=== PATIENT | female | born 1945 | race Caucasian/White ===

== ENCOUNTER → 2019-08-20 | Outpatient (CLI) | payer MEDICARE, OTHER ==
[~2019-08-20] MED LIST: AMIO200T33 PO; AMLO10TA13 PO; ASPI-543 PO; ATO40T PO; CHOL400C12 PO; CLOP75TA41 PO; LEVO125T7 PO; LISI40TA11 PO; METO25TA93 PO; PANT40TA2 PO; SUCR1TAB22 PO
[2019-08-20 12:11] LABS: Urine Blood Negative /uL (Negative); Urine Specific Gravity 1.008 (1.001-1.035)
[2019-08-20 12:12] LABS: Basophils # (auto) 0 10 ^3/uL (0-0.2); Basophils % (auto) 0.5 % (0.0-2.0); Eosinophils # (auto) 0.1 10 ^3/uL (0-0.8); Eosinophils % (auto) 1.7 % (0.0-7.0); Hematocrit 44.4 % (36.0-46.0); Hemoglobin 15.2 g/dL (12.2-16.2); Lymphocytes # (auto) 2.9 10 ^3/uL (0.4-5.4); Lymphocytes % (auto) 42.9 % (10.0-50.0); Mean Corpuscular Hemoglobin 29.5 pg (28.0-32.0); Mean Corpuscular Hgb Conc. 34.2 g/dL (32.0-36.0); Mean Corpuscular Volume 86.3 fL (80.0-100.0); Monocytes # (auto) 0.5 10 ^3/uL (0-1.3); Monocytes % (auto) 7.9 % (0.0-12.0); Neutrophils # (auto) 3.1 10 ^3/uL (1.6-8.6); Nucleated Red Blood Cells % 0.1 %; Platelet Count (auto) 289 10^3/uL (140-450); Red Blood Cells 5.14 10^6/uL (4.0-5.20); White Blood Cell 6.6 10^3/uL (4.4-10.8)
[2019-08-20 12:25] LABS: Calcium 9.5 mg/dL (8.5-10.1); Potassium 3.9 mmol/L (3.5-5.1)
[2019-08-20 12:30] LABS: BUN/Creatinine Ratio 10.3; Bilirubin, Total 0.5 mg/dL (0.2-1.0); Total Protein 8.4 g/dL (6.4-8.2)
[2019-08-20 12:36] LABS: Free T4 (Free Thyroxine) 1.71 ng/dL (0.89-1.76)
== END | disposition home or self-care (01) ==
LOC: LAB 09:29
PROVIDERS: ATTEND Internal Medicine
DX: E03.9 Hypothyroidism, unspecified (principal); K90.9 Intestinal malabsorption, unspecified; N39.0 Urinary tract infection, site not specified; D51.9 Vitamin B12 deficiency anemia, unspecified; Z00.00 Encounter for general adult medical examination without abnormal findings; Z79.899 Other long term (current) drug therapy
CPT/HCPCS: 36415; 80053; 80061; 81003; 82306; 82607; 83036; 84439; 84443; 85025; 87086

== ENCOUNTER → 2019-09-02 | Outpatient (CLI) | payer MEDICARE, OTHER ==
[~2019-09-02] MED LIST changes: -AMIO200T33 PO; -ASPI-543 PO; -CLOP75TA41 PO; +LISI40TA PO; -LISI40TA11 PO; -METO25TA93 PO; -PANT40TA2 PO; -SUCR1TAB22 PO
== END | disposition home or self-care (01) ==
LOC: Rad HDHVI 12:54
PROVIDERS: ATTEND Internal Medicine
DX: I35.8 Other nonrheumatic aortic valve disorders (principal); I25.10 Atherosclerotic heart disease of native coronary artery without angina pectoris; I42.9 Cardiomyopathy, unspecified; E78.5 Hyperlipidemia, unspecified
CPT/HCPCS: 93306

== ENCOUNTER → 2019-11-12 | Emergency (ER) | payer MEDICARE, OTHER ==
[~2019-11-12] VITALS: Ht 172.7 cm; Wt 77.1 kg
[2019-11-12 18:21] VITALS: BP 125/65
[2019-11-12 20:08] LABS: Basophils # (auto) 0 10 ^3/uL (0-0.2); Basophils % (auto) 0.5 % (0.0-2.0); Eosinophils # (auto) 0.2 10 ^3/uL (0-0.8); Eosinophils % (auto) 1.9 % (0.0-7.0); Hematocrit 42.2 % (36.0-46.0); Hemoglobin 14.5 g/dL (12.2-16.2); Lymphocytes % (auto) 43.1 % (10.0-50.0); Mean Corpuscular Hemoglobin 29.5 pg (28.0-32.0); Mean Corpuscular Hgb Conc. 34.4 g/dL (32.0-36.0); Mean Corpuscular Volume 85.9 fL (80.0-100.0); Monocytes # (auto) 0.9 10 ^3/uL (0-1.3); Monocytes % (auto) 9.6 % (0.0-12.0); Neutrophils # (auto) 4.2 10 ^3/uL (1.6-8.6); Neutrophils % (auto) 44.9 % (37.0-80.0); Platelet Count (auto) 337 10^3/uL (140-450); Red Blood Cells 4.91 10^6/uL (4.0-5.20); Red Cell Distribution Width 14.3 % (11.8-14.3); White Blood Cell 9.3 10^3/uL (4.4-10.8)
[2019-11-12 20:21] LABS: INR 1.01 (0.9-1.15); Partial Thromboplastin Time 25.1 sec (23.64-32.05)
[2019-11-12 21:05] LABS: Albumin 4.2 g/dL (3.4-5.0); Calcium 9.5 mg/dL (8.5-10.1); Magnesium 2.3 mg/dL (1.6-2.6); Potassium 3.7 mmol/L (3.5-5.1)
[2019-11-12 21:10] LABS: BUN/Creatinine Ratio 14.3; Bilirubin, Total 0.4 mg/dL (0.2-1.0); Total Protein 8.3 g/dL (6.4-8.2)
== END | disposition home or self-care (01) ==
LOC: ER 18:00
DX: I21.4 Non-ST elevation (NSTEMI) myocardial infarction (principal); I25.9 Chronic ischemic heart disease, unspecified; I47.2 Ventricular tachycardia; R00.2 Palpitations; J44.9 Chronic obstructive pulmonary disease, unspecified; E78.5 Hyperlipidemia, unspecified; I10 Essential (primary) hypertension; E03.9 Hypothyroidism, unspecified
CPT/HCPCS: 36415; 71045; 80053; 83735; 83880; 84443; 84484; 85025; 85379; 85610; 85730; 93005

== ENCOUNTER → 2019-11-18 | Outpatient (CLI) | payer MEDICARE, OTHER ==
[~2019-11-18] MED LIST changes: +AMIO200T33 PO; +ASPI-404 PO; +CLOP75TA41 PO; +METO25TA93 PO
[2019-11-18 12:05] VITALS: BP 127/82
--- NOTE | 2019-11-18 12:05 | NUR ---
PATIENT IN CLINIC FOR ADD ON PREOP, AAOX4, AMBULATORY, BREATHING EVEN AND UNLABORED.
[2019-11-18 12:34] VITALS: BP 107/63
--- NOTE | 2019-11-18 12:34 | NUR ---
Pre-Op Discharge Summary: See e-MAR for any medications given for this visit. Pre-op orders received and carried out per MD of EKG, LABS and chest xrays. Patient given a copy of EKG with instructions to go to [facility] out patient for further follow up care.
[2019-11-18 16:02] LABS: Basophils # (auto) 0 10 ^3/uL (0-0.2); Basophils % (auto) 0.6 % (0.0-2.0); Eosinophils # (auto) 0.1 10 ^3/uL (0-0.8); Eosinophils % (auto) 1.7 % (0.0-7.0); Hematocrit 41.2 % (36.0-46.0); Hemoglobin 14.2 g/dL (12.2-16.2); Lymphocytes % (auto) 45.2 % (10.0-50.0); Mean Corpuscular Hemoglobin 29.5 pg (28.0-32.0); Mean Corpuscular Hgb Conc. 34.4 g/dL (32.0-36.0); Mean Corpuscular Volume 85.8 fL (80.0-100.0); Monocytes # (auto) 0.6 10 ^3/uL (0-1.3); Neutrophils # (auto) 2.9 10 ^3/uL (1.6-8.6); Neutrophils % (auto) 43.5 % (37.0-80.0); Platelet Count (auto) 336 10^3/uL (140-450); Red Cell Distribution Width 14.5 % (11.8-14.3); White Blood Cell 6.6 10^3/uL (4.4-10.8)
[2019-11-18 16:15] LABS: BUN/Creatinine Ratio 12.2; Calcium 8.7 mg/dL (8.5-10.1); Potassium 3.8 mmol/L (3.5-5.1)
[2019-11-18 16:21] LABS: INR 1.01 (0.9-1.15); Partial Thromboplastin Time 26.2 sec (23.64-32.05)
== END | disposition home or self-care (01) ==
LOC: Rad HDHVI 11:59
PROVIDERS: ATTEND Internal Medicine
DX: J98.4 Other disorders of lung (principal); I70.0 Atherosclerosis of aorta; R05 Cough; M47.894 Other spondylosis, thoracic region; M25.78 Osteophyte, vertebrae; Z01.812 Encounter for preprocedural laboratory examination
CPT/HCPCS: 36415; 71046; 80048; 85025; 85610; 85730; 93005; G0463

== ENCOUNTER 2019-11-25 07:36 | Inpatient (IN) | payer MEDICARE, OTHER ==
[~2019-11-25] VITALS: Ht 172.7 cm; Wt 77.8 kg
[~2019-11-25 07:36] MED LIST changes: -ASPI-404 PO; +ASPI-543 PO; -LISI40TA PO; +LISI40TA11 PO
[2019-11-25] MEDS ORDERED: IOHEXOL 350 MG/ML 100ML IJ ONE ×2 (08:59→09:59)
[2019-11-25] MEDS ORDERED: LIDOCAINE 2%HCL (LOCAL ANESTH.) INJ 20ML MDV ONE (08:59)
[2019-11-25] MEDS ORDERED: fentaNYL CITRATE 100 MCG/2 ML VL ONE (09:58)
[2019-11-25] MEDS ORDERED: HEPARIN SODIUM (PORCINE) 5000 UNITS/ML 1ML VIAL ONE (09:58)
[2019-11-25] MEDS ORDERED: ANGIOMAX 250 MG VIAL IV ONE (09:58)
[2019-11-25] MEDS ORDERED: VERAPAMIL 2.5MG/ML INJ 2ML VIAL IV ONE (09:58)
[2019-11-25] MEDS ORDERED: MIDAZOLAM HCL 1MG/1ML-2 ML VIAL ONE (09:58)
[2019-11-25] MEDS ORDERED: SODIUM CHL 0.9% 50 ML ONE (09:59)
[2019-11-25] MEDS ORDERED: CLOPIDOGREL BISULFATE 75 MG TAB ONE (11:16)
[2019-11-25] MEDS ORDERED: ASPirin 81 mg TAB ONE (11:16)
[2019-11-25] MEDS ORDERED: HYDROcodone-ACET 5/325MG TAB PO PRN (12:00)
[2019-11-25] MEDS ORDERED: ONDANSETRON HCL 4 MG/2 ML VIAL IV PRN (12:00)
[2019-11-25] MEDS ORDERED: ACETAMINOPHEN 500 MG TAB PO PRN (12:00)
[2019-11-25] MEDS ORDERED: NITROGLYCERIN 0.4 MG SL TAB SL PRN (12:00)
[2019-11-25] MEDS ORDERED: MORPHINE SULF INJ 2 MG/ML SYRINGE 1ML IV PRN (12:00)
[2019-11-25] MEDS ORDERED: AMIODARONE HCL 200 MG TAB PO ONE ×2 (12:15→12:30)
[2019-11-25] MEDS ORDERED: LISINOPRIL 20 MG TAB PO ONE (12:30)
[2019-11-25] MEDS ORDERED: ASPirin-EC 81 mg tab PO ONE (12:30)
[2019-11-25] MEDS ORDERED: amLODIPine BESYLATE 5 MG TAB PO ONE (12:30)
[2019-11-25] MEDS ORDERED: LEVOTHYROXINE SODIUM 50 MCG TAB PO ONE (12:30)
[2019-11-25] MEDS ORDERED: METOPROLOL SUCCINATE XL 50 MG TAB PO ONE (12:30)
[2019-11-25] MEDS ORDERED: CLOPIDOGREL BISULFATE 75 MG TAB PO ONE (12:30)
--- NOTE | 2019-11-25 13:10 | NUR ---
Telemetry admit from National Account Director WILLIE PEDERSEN admitted to Telemetry unit after SBAR received. Patient oriented to ABDIRAHMAN MATHEWS RN primary RN, unit, room, bed, and unit policies regarding patient care. Patient now on continuous telemetry monitoring, tele box # 61 and telemetry reading on arrival to unit is sinus 71. Patient is on room air, respirations even and unlabored. Patient has vasc band to left wrist. Patient denies pain at this time. Reviewed plan of care with patient, patient verbalized understanding. Bed in low and locked position, call light within reach. Will continue to monitor Q1 hour and PRN.
--- NOTE | 2019-11-25 15:00 | NUR ---
Vasc band removed No signs of bleeding or hematoma noted to left wrist, gauze and Tegaderm applied. Patient tolerated well. Will continue to monitor Q1 hour and PRN.
[2019-11-25 16:50] VITALS: BP 105/64
--- NOTE | 2019-11-25 17:11 | NUR ---
IV removed IV removed with clean sterile technique from left hand, catheter fully intact. Pressure dressing applied to site. Patient tolerated well. Will continue to monitor Q1 hour and PRN.
--- NOTE | 2019-11-25 19:03 | NUR ---
Closing Note Report given to bricklayer supervisor RN. No signs or symptoms of distress noted at this time.
--- NOTE | 2019-11-25 19:30 | NUR ---
Opening Shift Note Assumed care of patient, awake and alert. No S/S of distress/SOB or pain. L wrist incision intact. Instructed on POC and to call for assist PRN, will continue to monitor for changes Q1hr and PRN.
[2019-11-25 22:00] VITALS: BP 137/83
[2019-11-25] MEDS ORDERED: ATORVASTATIN 20 MG TAB PO SCH (22:00)
[2019-11-26 05:29] VITALS: BP 138/78
[2019-11-26] MEDS ORDERED: AMIODARONE HCL 200 MG TAB PO SCH (07:00)
[2019-11-26] MEDS ORDERED: ASPirin-EC 81 mg tab PO SCH (07:00)
--- NOTE | 2019-11-26 07:15 | NUR ---
CLOSING NOTE PATIENT STATUS HAS NOT CHANGE, INCISION SITE CLEAN, DRY AND INTACT. ENDORSED CARE TO DAYSHIFT NURSE.
--- NOTE | 2019-11-26 07:30 | NUR ---
Opening Note Received report from shift leader RN. Patient is resting in bed, easy to wake by calling name. Patient is on room air, respirations even and unlabored. Dressing to left wrist is clean, dry and intact. No bleeding or hematoma noted at this time. Patient denies pain at this time. Reviewed plan of care with patient, patient verbalized understanding. Bed in low and locked position, call light within reach. Will continue to monitor Q1 hour and PRN.
[2019-11-26 08:40] VITALS: BP 133/66
[2019-11-26 09:25] LABS: Basophils # (auto) 0 10 ^3/uL (0-0.2); Basophils % (auto) 0.5 % (0.0-2.0); Eosinophils # (auto) 0.1 10 ^3/uL (0-0.8); Eosinophils % (auto) 1.7 % (0.0-7.0); Hematocrit 43.1 % (36.0-46.0); Hemoglobin 14.7 g/dL (12.2-16.2); Lymphocytes # (auto) 2.2 10 ^3/uL (0.4-5.4); Lymphocytes % (auto) 33.1 % (10.0-50.0); Mean Corpuscular Hemoglobin 29.4 pg (28.0-32.0); Mean Corpuscular Hgb Conc. 34.2 g/dL (32.0-36.0); Mean Corpuscular Volume 85.8 fL (80.0-100.0); Monocytes # (auto) 0.5 10 ^3/uL (0-1.3); Monocytes % (auto) 7.3 % (0.0-12.0); Neutrophils # (auto) 3.8 10 ^3/uL (1.6-8.6); Neutrophils % (auto) 57.4 % (37.0-80.0); Platelet Count (auto) 297 10^3/uL (140-450); Red Blood Cells 5.02 10^6/uL (4.0-5.20); Red Cell Distribution Width 14.7 % (11.8-14.3); White Blood Cell 6.7 10^3/uL (4.4-10.8)
--- NOTE | 2019-11-26 09:58 | NUR ---
0930 11/26/19 - Faxed to Patric Morrison at [phone] following: patient face sheet, order for zoll vest, results of Left Heart Cath.
[2019-11-26] MEDS ORDERED: LEVOTHYROXINE SODIUM 50 MCG TAB PO SCH ×2 (10:00)
[2019-11-26] MEDS ORDERED: CLOPIDOGREL BISULFATE 75 MG TAB PO SCH (10:00)
[2019-11-26] MEDS ORDERED: METOPROLOL SUCCINATE XL 50 MG TAB PO SCH (10:00)
[2019-11-26] MEDS ORDERED: amLODIPine BESYLATE 5 MG TAB PO SCH (10:00)
[2019-11-26] MEDS ORDERED: LISINOPRIL 20 MG TAB PO SCH (10:00)
[2019-11-26 10:01] LABS: Albumin 3.7 g/dL (3.4-5.0); Calcium 9.3 mg/dL (8.5-10.1); Potassium 3.7 mmol/L (3.5-5.1)
[2019-11-26 10:05] LABS: BUN/Creatinine Ratio 9.6; Bilirubin, Total 0.6 mg/dL (0.2-1.0); Total Protein 7.7 g/dL (6.4-8.2)
--- NOTE | 2019-11-26 10:23 | NUR ---
PAUL Guaman at bedside Discussing plan of care with patient and this RN. Patient to discharge home with a zoll life vest. Patient verbalized understanding. Will continue to monitor Q1 hour and PRN.
--- NOTE | 2019-11-26 12:10 | NUR ---
Dr. Dumont at bedside Discussing plan of care with patient and this RN. Patient can discharge home once zoll vest has been delivered. Patient verbalized understanding. Will continue to monitor Q1 hour and PRN.
[2019-11-26 13:00] VITALS: BP 133/76
[2019-11-26 16:33] VITALS: BP 105/63
[2019-11-26 16:51] VITALS: BP 133/66
--- NOTE | 2019-11-26 17:06 | NUR ---
zoll life vest cash application representative at bedside.
--- NOTE | 2019-11-26 17:50 | NUR ---
Discharge Discharge instructions given as ordered. Encourage to follow up with PMD as instructed. All questions and concerns addressed. Patient verbalized understanding. Medication reconciliation form completed and copy given to patient. Chad fischer to patient, patient instructed to have them filled. IV catheter removed, pressure dressing applied. Patient discharged with zoll life vest. Patient verbalized understanding. Patient taken to private vehicle via wheelchair with all personal belongings. No signs or symptoms of distress noted at this time.
== END 2019-11-26 17:55 | disposition home or self-care (01) | DRG 247 ==
LOC: CATH 07:36 → TELE-WESTW 14:02
PROVIDERS: ADMIT Internal Medicine; ATTEND Internal Medicine
PROC: 4A023N7 Measurement of Cardiac Sampling and Pressure, Left Heart, Percutaneous Approach (ICD-10-PCS; principal; 2019-11-25)
PROC: 027035Z Dilation of Coronary Artery, One Artery with Two Drug-eluting Intraluminal Devices, Percutaneous Approach (ICD-10-PCS; 2019-11-25)
PROC: B211YZZ Fluoroscopy of Multiple Coronary Arteries using Other Contrast (ICD-10-PCS; 2019-11-25)
PROC: B215YZZ Fluoroscopy of Left Heart using Other Contrast (ICD-10-PCS; 2019-11-25)
DX: I25.10 Atherosclerotic heart disease of native coronary artery without angina pectoris (principal); I50.22 Chronic systolic (congestive) heart failure; E03.9 Hypothyroidism, unspecified; E78.5 Hyperlipidemia, unspecified; I25.5 Ischemic cardiomyopathy; J44.9 Chronic obstructive pulmonary disease, unspecified; Z20.828 Contact with and (suspected) exposure to other viral communicable diseases; I11.0 Hypertensive heart disease with heart failure
CPT/HCPCS: 36415; 71045; 80053; 83880; 85025; 87081; 92928; 92929; 93458; 99152; 99153; C1874; C1887; G0378; J2250

== ENCOUNTER → 2019-12-24 | Outpatient (CLI) | payer MEDICARE, OTHER | END | disposition home or self-care (01) | LOC: Rad HDHVI 10:00 | PROVIDERS: ATTEND Internal Medicine | DX: I70.0 Atherosclerosis of aorta (principal); I25.10 Atherosclerotic heart disease of native coronary artery without angina pectoris; I42.9 Cardiomyopathy, unspecified; I47.2 Ventricular tachycardia; I51.7 Cardiomegaly | CPT/HCPCS: 93306 ==

== ENCOUNTER 2020-02-24 01:15 | Inpatient (IN) | payer MEDICARE, OTHER ==
[~2020-02-24] VITALS: Ht 172.7 cm; Wt 83.0 kg
[2020-02-24] MEDS ORDERED: PANTOPRAZOLE 40 MG/10 ML VIAL INJ IV ONE (02:15)
[2020-02-24 02:36] LABS: Basophils # (auto) 0.1 10 ^3/uL (0-0.2); Eosinophils # (auto) 0.2 10 ^3/uL (0-0.8); Eosinophils % (auto) 2.3 % (0.0-7.0); Hematocrit 39.5 % (36.0-46.0); Hemoglobin 13.7 g/dL (12.2-16.2); Lymphocytes # (auto) 3.7 10 ^3/uL (0.4-5.4); Lymphocytes % (auto) 42.6 % (10.0-50.0); Mean Corpuscular Hemoglobin 29.9 pg (28.0-32.0); Mean Corpuscular Hgb Conc. 34.5 g/dL (32.0-36.0); Mean Corpuscular Volume 86.5 fL (80.0-100.0); Monocytes # (auto) 0.9 10 ^3/uL (0-1.3); Monocytes % (auto) 10.6 % (0.0-12.0); Neutrophils # (auto) 3.8 10 ^3/uL (1.6-8.6); Neutrophils % (auto) 43.5 % (37.0-80.0); Nucleated Red Blood Cells % 0.2 %; Platelet Count (auto) 380 10^3/uL (140-450); Red Blood Cells 4.57 10^6/uL (4.0-5.20); Red Cell Distribution Width 15.1 % (11.8-14.3); White Blood Cell 8.7 10^3/uL (4.4-10.8)
[2020-02-24 02:50] LABS: INR 0.97 (0.9-1.15); Partial Thromboplastin Time 23.3 sec (23.0-31.2)
[2020-02-24 02:58] LABS: Calcium 9.1 mg/dL (8.5-10.1); Potassium 3.8 mmol/L (3.5-5.1)
[2020-02-24 03:03] LABS: BUN/Creatinine Ratio 15.2; Bilirubin, Total 0.3 mg/dL (0.2-1.0); Total Protein 7.6 g/dL (6.4-8.2)
[2020-02-24] MEDS ORDERED: MORPHINE SULF INJ 2 MG/ML SYRINGE 1ML IV PRN (05:45)
[2020-02-24] MEDS ORDERED: NITROGLYCERIN 0.4 MG SL TAB SL PRN (05:45)
[2020-02-24] MEDS ORDERED: SODIUM CHLORIDE 0.9% 1,000 ML IV SCH (05:45)
[2020-02-24] MEDS ORDERED: ONDANSETRON HCL 4 MG/2 ML VIAL IV PRN (05:45)
[2020-02-24] MEDS ORDERED: IOHEXOL 300 MG/ML 100ML BOTTLE IJ ONE (09:38)
[2020-02-24] MEDS ORDERED: SODIUM CHLORIDE LOCK 10 ML ONE (10:11)
[2020-02-24] MEDS ORDERED: fentaNYL CITRATE 100 MCG/2 ML VL ONE (10:12)
[2020-02-24] MEDS ORDERED: LIDOCAINE VISCOUS 2% 15ML UD ONE (10:12)
[2020-02-24] MEDS ORDERED: MIDAZOLAM HCL 5 MG/ML-1ML VIAL ONE (10:12)
[2020-02-24] MEDS ORDERED: diphenhdrAMINE HCL 50 MG/1 ML VL ONE (10:12)
[2020-02-24] MEDS: PANTOPRAZOLE 40 MG/10 ML VIAL INJ IV SCH ×2 (11:08→22:29)
[2020-02-24 13:00] VITALS: BP 126/77
[2020-02-24] MEDS ORDERED: POTASSIUM EFFERVESENT TAB 25 MEQ PO ONE (13:00)
[2020-02-24 14:19] LABS: Basophils # (auto) 0.1 10 ^3/uL (0-0.2); Eosinophils # (auto) 0.2 10 ^3/uL (0-0.8); Eosinophils % (auto) 1.8 % (0.0-7.0); Hematocrit 32.9 % (36.0-46.0); Hemoglobin 10.9 g/dL (12.2-16.2); Lymphocytes # (auto) 4.3 10 ^3/uL (0.4-5.4); Lymphocytes % (auto) 41.1 % (10.0-50.0); Mean Corpuscular Hemoglobin 29.2 pg (28.0-32.0); Mean Corpuscular Hgb Conc. 33.1 g/dL (32.0-36.0); Mean Corpuscular Volume 88.1 fL (80.0-100.0); Monocytes % (auto) 9.4 % (0.0-12.0); Neutrophils # (auto) 4.9 10 ^3/uL (1.6-8.6); Neutrophils % (auto) 46.7 % (37.0-80.0); Nucleated Red Blood Cells % 0.2 %; Platelet Count (auto) 290 10^3/uL (140-450); Red Blood Cells 3.73 10^6/uL (4.0-5.20); Red Cell Distribution Width 15.4 % (11.8-14.3); White Blood Cell 10.6 10^3/uL (4.4-10.8)
[2020-02-24] MEDS ORDERED: CLOPIDOGREL BISULFATE 75 MG TAB PO ONE (14:45)
[2020-02-24 17:00] VITALS: BP_SYST 120; BP_SYST 189; BP_DIAS 57; BP_DIAS 98
[2020-02-24 17:42] VITALS: BP 120/57
[2020-02-24] MEDS: SUCRALFATE 1 GM/10 ML ORAL SUSP PO SCH ×2 (17:54→22:28)
[2020-02-24 22:00] VITALS: BP 147/86
[2020-02-24] MEDS: ATORVASTATIN 20 MG TAB PO SCH (22:29)
[2020-02-25 05:54] LABS: Basophils # (auto) 0.1 10 ^3/uL (0-0.2); Eosinophils # (auto) 0.2 10 ^3/uL (0-0.8); Eosinophils % (auto) 2.9 % (0.0-7.0); Hematocrit 29.1 % (36.0-46.0); Hemoglobin 9.9 g/dL (12.2-16.2); Lymphocytes # (auto) 2.1 10 ^3/uL (0.4-5.4); Lymphocytes % (auto) 34.9 % (10.0-50.0); Mean Corpuscular Hemoglobin 29.8 pg (28.0-32.0); Mean Corpuscular Hgb Conc. 34.1 g/dL (32.0-36.0); Mean Corpuscular Volume 87.4 fL (80.0-100.0); Monocytes # (auto) 0.6 10 ^3/uL (0-1.3); Monocytes % (auto) 9.6 % (0.0-12.0); Neutrophils # (auto) 3.1 10 ^3/uL (1.6-8.6); Neutrophils % (auto) 51.6 % (37.0-80.0); Nucleated Red Blood Cells % 0.1 %; Platelet Count (auto) 261 10^3/uL (140-450); Red Blood Cells 3.32 10^6/uL (4.0-5.20); Red Cell Distribution Width 14.6 % (11.8-14.3)
[2020-02-25 06:00] VITALS: BP 152/73
[2020-02-25 06:08] LABS: BUN/Creatinine Ratio 11.7; Calcium 8.3 mg/dL (8.5-10.1)
[2020-02-25] MEDS: SUCRALFATE 1 GM/10 ML ORAL SUSP PO SCH ×4 (06:32→22:09)
[2020-02-25] MEDS: LEVOTHYROXINE SODIUM 50 MCG TAB PO SCH (06:32)
[2020-02-25 08:00] VITALS: BP 133/71
[2020-02-25] MEDS ORDERED: CLOPIDOGREL BISULFATE 75 MG TAB PO SCH (10:00)
[2020-02-25] MEDS: PANTOPRAZOLE 40 MG/10 ML VIAL INJ IV SCH ×2 (11:09→22:09)
[2020-02-25] MEDS ORDERED: hydrALAZINE HCL 25 MG TAB PO PRN (13:45)
[2020-02-25] MEDS: SOD CHL 0.9%/ KCL 20MEQ 1,000 ML IV SCH (18:20)
[2020-02-25] MEDS: ATORVASTATIN 20 MG TAB PO SCH (22:10)
[2020-02-25 22:24] VITALS: BP 137/63
[2020-02-26 04:19] LABS: Urine Bacteria NONE SEEN /hpf (None Seen); Urine Blood TRACE /uL (Negative); Urine WBC <1 /hpf (0 - 5)
[2020-02-26 05:09] VITALS: BP 130/66
[2020-02-26] MEDS: SOD CHL 0.9%/ KCL 20MEQ 1,000 ML IV SCH ×4 (05:39→21:50)
[2020-02-26 06:14] LABS: Basophils # (auto) 0 10 ^3/uL (0-0.2); Basophils % (auto) 0.9 % (0.0-2.0); Eosinophils # (auto) 0.1 10 ^3/uL (0-0.8); Eosinophils % (auto) 1.9 % (0.0-7.0); Hematocrit 27.2 % (36.0-46.0); Hemoglobin 9.4 g/dL (12.2-16.2); Lymphocytes # (auto) 1.7 10 ^3/uL (0.4-5.4); Lymphocytes % (auto) 33.5 % (10.0-50.0); Mean Corpuscular Hemoglobin 29.9 pg (28.0-32.0); Mean Corpuscular Hgb Conc. 34.4 g/dL (32.0-36.0); Monocytes # (auto) 0.4 10 ^3/uL (0-1.3); Neutrophils # (auto) 2.7 10 ^3/uL (1.6-8.6); Neutrophils % (auto) 54.7 % (37.0-80.0); Nucleated Red Blood Cells % 0.1 %; Platelet Count (auto) 260 10^3/uL (140-450); Red Blood Cells 3.13 10^6/uL (4.0-5.20); Red Cell Distribution Width 14.9 % (11.8-14.3)
[2020-02-26] MEDS: SUCRALFATE 1 GM/10 ML ORAL SUSP PO SCH ×4 (06:14→21:49)
[2020-02-26] MEDS: LEVOTHYROXINE SODIUM 50 MCG TAB PO SCH (07:00)
[2020-02-26] MEDS: CLOPIDOGREL BISULFATE 75 MG TAB PO SCH (08:53)
[2020-02-26 09:00] VITALS: BP 130/72
[2020-02-26] MEDS: PANTOPRAZOLE 40 MG/10 ML VIAL INJ IV SCH ×2 (10:21→21:49)
[2020-02-26] MEDS ORDERED: LIDOCAINE VISCOUS 2% 15ML UD ONE (11:25)
[2020-02-26] MEDS ORDERED: SODIUM CHLORIDE LOCK 10 ML ONE (11:25)
[2020-02-26] MEDS ORDERED: diphenhdrAMINE HCL 50 MG/1 ML VL ONE (11:26)
[2020-02-26 13:00] VITALS: BP 144/78
[2020-02-26] MEDS: fentaNYL CITRATE 100 MCG/2 ML VL ONE ×3 (15:51→15:58)
[2020-02-26] MEDS: MIDAZOLAM HCL 5 MG/ML-1ML VIAL ONE ×3 (15:51→15:58)
[2020-02-26 17:00] VITALS: BP 135/64
[2020-02-26] MEDS: ATORVASTATIN 20 MG TAB PO SCH (21:49)
[2020-02-26 22:31] VITALS: BP 113/52
[2020-02-27 05:06] VITALS: BP 144/67
[2020-02-27] MEDS: SUCRALFATE 1 GM/10 ML ORAL SUSP PO SCH ×2 (06:42→11:07)
[2020-02-27] MEDS: LEVOTHYROXINE SODIUM 50 MCG TAB PO SCH (06:43)
[2020-02-27 08:36] VITALS: BP 140/73
[2020-02-27 09:18] LABS: Hematocrit 27.9 % (36.0-46.0); Hemoglobin 9.3 g/dL (12.2-16.2)
[2020-02-27] MEDS: CLOPIDOGREL BISULFATE 75 MG TAB PO SCH (10:14)
[2020-02-27] MEDS: PANTOPRAZOLE 40 MG/10 ML VIAL INJ IV SCH (10:16)
[2020-02-27] MEDS: SOD CHL 0.9%/ KCL 20MEQ 1,000 ML IV SCH (10:18)
[2020-02-27] MEDS ORDERED: PANT40TA2 PO (10:36)
[2020-02-27] MEDS ORDERED: SUCR1TAB22 PO (10:36)
[2020-02-27 12:29] VITALS: BP 147/87
[2020-02-27 13:41] VITALS: BP 147/87
== END 2020-02-27 14:10 | disposition home or self-care (01) | DRG 378 ==
LOC: ER 01:18 → TELE 01:19 → TELE-WESTW 09:31
PROVIDERS: ADMIT Nurse Practitioner; ATTEND Internal Medicine
PROC: 0DB68ZX Excision of Stomach, Via Natural or Artificial Opening Endoscopic, Diagnostic (ICD-10-PCS; principal; 2020-02-26 15:51)
DX: K29.61 Other gastritis with bleeding (principal); R71.0 Precipitous drop in hematocrit; K57.31 Diverticulosis of large intestine without perforation or abscess with bleeding; K44.9 Diaphragmatic hernia without obstruction or gangrene; I10 Essential (primary) hypertension; E03.9 Hypothyroidism, unspecified; E78.5 Hyperlipidemia, unspecified; Z20.828 Contact with and (suspected) exposure to other viral communicable diseases; I25.10 Atherosclerotic heart disease of native coronary artery without angina pectoris; E78.00 Pure hypercholesterolemia, unspecified; I25.2 Old myocardial infarction; Z87.891 Personal history of nicotine dependence; Z95.5 Presence of coronary angioplasty implant and graft; Z79.899 Other long term (current) drug therapy; Z79.02 Long term (current) use of antithrombotics/antiplatelets; Z79.82 Long term (current) use of aspirin
CPT/HCPCS: 36415; 43239; 71045; 74176; 74177; 80048; 80053; 81001; 82270; 82565; 84484; 84520; 84702; 85014; 85018; 85025; 85379; 85610; 85730; 86850; 86900; 86901; 87426; 96361; 96374; C9113; G0378; J2250

== ENCOUNTER → 2020-03-03 | Outpatient (CLI) | payer MEDICARE, OTHER ==
[~2020-03-03] VITALS: Ht 172.7 cm; Wt 84.8 kg
[~2020-03-03] MED LIST changes: +ADENOSINE 71 MG in GIVE UN-DILUTED 0 ML IV ONE; +ADENOSINE 90 MG/30 ML INJ IV ONE; -AMLO10TA13 PO; -ASPI-543 PO; +PANT40TA2 PO; +SUCR1TAB22 PO
== END | disposition home or self-care (01) ==
LOC: Rad HDHVI 13:51
PROVIDERS: ATTEND Internal Medicine
DX: I11.0 Hypertensive heart disease with heart failure (principal); I50.9 Heart failure, unspecified; E78.5 Hyperlipidemia, unspecified; I25.10 Atherosclerotic heart disease of native coronary artery without angina pectoris; E11.9 Type 2 diabetes mellitus without complications; R07.9 Chest pain, unspecified; F17.210 Nicotine dependence, cigarettes, uncomplicated; I25.2 Old myocardial infarction; Z82.49 Family history of ischemic heart disease and other diseases of the circulatory system
CPT/HCPCS: 78452; 93005; 96374; 96375; A9500; J0153

== ENCOUNTER → 2020-04-05 | Outpatient (CLI) | payer MEDICARE, OTHER ==
[~2020-04-05] MED LIST changes: -ADENOSINE 71 MG in GIVE UN-DILUTED 0 ML IV ONE; -ADENOSINE 90 MG/30 ML INJ IV ONE
== END | disposition home or self-care (01) ==
LOC: LAB 13:49
PROVIDERS: ATTEND Internal Medicine
DX: E03.9 Hypothyroidism, unspecified (principal)
CPT/HCPCS: 36415; 84443

== ENCOUNTER → 2020-08-25 | Outpatient (CLI) | payer MEDICARE, OTHER ==
[~2020-08-25] MED LIST changes: -CLOP75TA41 PO; +CLOP75TA70 PO
== END | disposition home or self-care (01) ==
LOC: Rad HDHVI 08:40
PROVIDERS: ATTEND Internal Medicine
DX: R00.2 Palpitations (principal); E78.5 Hyperlipidemia, unspecified
CPT/HCPCS: 93306

== ENCOUNTER → 2020-08-31 | Outpatient (CLI) | payer MEDICARE, OTHER ==
[~2020-08-31] VITALS: Ht 172.7 cm; Wt 89.8 kg
[~2020-08-31] MED LIST changes: +ADENOSINE 75 MG in GIVE UN-DILUTED 0 ML IV ONE; +ADENOSINE 90 MG/30 ML INJ IV ONE
== END | disposition home or self-care (01) ==
LOC: Rad HDHVI 08:41
PROVIDERS: ATTEND Internal Medicine
DX: I25.10 Atherosclerotic heart disease of native coronary artery without angina pectoris (principal); I47.2 Ventricular tachycardia; E03.9 Hypothyroidism, unspecified
CPT/HCPCS: 78452; 93005; 96374; 96375; A9500; J0153

== ENCOUNTER → 2020-12-02 | Outpatient (CLI) | payer MEDICARE, OTHER ==
[~2020-12-02] MED LIST changes: -ADENOSINE 75 MG in GIVE UN-DILUTED 0 ML IV ONE; -ADENOSINE 90 MG/30 ML INJ IV ONE; +FENO145T27 PO; +LEV150T PO; +ZINC220C8 PO
[2020-12-02 08:20] VITALS: BP 137/79
[2020-12-02 08:42] VITALS: BP 134/69
[2020-12-02 12:04] LABS: Basophils # (auto) 0 10 ^3/uL (0-0.2); Basophils % (auto) 0.7 % (0.0-2.0); Eosinophils # (auto) 0.1 10 ^3/uL (0-0.8); Eosinophils % (auto) 1.7 % (0.0-7.0); Hematocrit 42.3 % (36.0-46.0); Lymphocytes # (auto) 2.4 10 ^3/uL (0.4-5.4); Lymphocytes % (auto) 35.5 % (10.0-50.0); Mean Corpuscular Hemoglobin 27.7 pg (28.0-32.0); Mean Corpuscular Hgb Conc. 33.2 g/dL (32.0-36.0); Mean Corpuscular Volume 83.4 fL (80.0-100.0); Monocytes # (auto) 0.9 10 ^3/uL (0-1.3); Monocytes % (auto) 13.2 % (0.0-12.0); Neutrophils # (auto) 3.2 10 ^3/uL (1.6-8.6); Neutrophils % (auto) 48.9 % (37.0-80.0); Red Blood Cells 5.08 10^6/uL (4.0-5.20); Red Cell Distribution Width 16.8 % (11.8-14.3); White Blood Cell 6.6 10^3/uL (4.4-10.8)
[2020-12-02 12:18] LABS: Calcium 8.6 mg/dL (8.5-10.1); INR 1.01 (0.9-1.15); Partial Thromboplastin Time 25.8 sec (23.0-31.2)
[2020-12-02 12:21] LABS: BUN/Creatinine Ratio 13.8
== END | disposition home or self-care (01) ==
LOC: Rad HDHVI 07:58
PROVIDERS: ATTEND Internal Medicine
DX: Z01.812 Encounter for preprocedural laboratory examination (principal); I70.0 Atherosclerosis of aorta; I44.7 Left bundle-branch block, unspecified; R94.31 Abnormal electrocardiogram [ECG] [EKG]; I11.0 Hypertensive heart disease with heart failure; I50.9 Heart failure, unspecified
CPT/HCPCS: 36415; 71046; 80048; 85025; 85610; 85730; 93005; G0463

== ENCOUNTER 2020-12-07 06:39 | Day surgery (SDC) | payer MEDICARE, OTHER ==
[~2020-12-07] VITALS: Ht 172.7 cm; Wt 86.2 kg
[~2020-12-07 06:39] MED LIST changes: -AMIO200T33 PO; -LEVO125T7 PO; -METO25TA93 PO; -PANT40TA2 PO; -SUCR1TAB22 PO
[2020-12-07] MEDS ORDERED: IODIXANOL 320MG/ML 100ML BTL IV ONE ×2 (07:53→10:12)
[2020-12-07] MEDS ORDERED: LIDOCAINE 2%HCL (LOCAL ANESTH.) INJ 20ML MDV ONE (07:53)
[2020-12-07] MEDS ORDERED: HEPARIN SODIUM (PORCINE) 5000 UNITS/ML 1ML VIAL ONE (08:50)
[2020-12-07] MEDS ORDERED: VERAPAMIL 2.5MG/ML INJ 2ML VIAL IV ONE (08:50)
[2020-12-07] MEDS ORDERED: ANGIOMAX 250 MG VIAL IV ONE (08:50)
[2020-12-07] MEDS ORDERED: MIDAZOLAM HCL 1MG/1ML-2 ML VIAL ONE (08:51)
[2020-12-07] MEDS ORDERED: fentaNYL CITRATE 100 MCG/2 ML VL ONE (08:51)
[2020-12-07] MEDS ORDERED: SODIUM CHL 0.9% 0 ML ONE (08:51)
[2020-12-07] MEDS ORDERED: ACETAMINOPHEN 500 MG TAB PO PRN (10:30)
[2020-12-07] MEDS ORDERED: HYDROcodone-ACET 5/325MG TAB PO PRN (10:30)
[2020-12-07] MEDS ORDERED: ONDANSETRON HCL 4 MG/2 ML VIAL IV PRN (10:30)
== END 2020-12-07 12:22 | disposition home or self-care (01) ==
LOC: CATH 06:39
PROVIDERS: ATTEND Internal Medicine
DX: I25.10 Atherosclerotic heart disease of native coronary artery without angina pectoris (principal); I10 Essential (primary) hypertension; E78.5 Hyperlipidemia, unspecified; J44.9 Chronic obstructive pulmonary disease, unspecified; E03.9 Hypothyroidism, unspecified; F17.200 Nicotine dependence, unspecified, uncomplicated; Z95.5 Presence of coronary angioplasty implant and graft; Z86.12 Personal history of poliomyelitis; Z84.0 Family history of diseases of the skin and subcutaneous tissue; Z83.1 Family history of other infectious and parasitic diseases; Z20.822 Contact with and (suspected) exposure to COVID-19
CPT/HCPCS: 93458; C1769; C1894; J1644; J2250; J3010; Q9967; U0003; 99152; 99153

== ENCOUNTER 2025-01-20 02:29 | Emergency (ER) | payer MEDICARE, OTHER ==
[~2025-01-20] VITALS: Ht 172.7 cm; Wt 66.6 kg
[~2025-01-20 02:29] MED LIST changes: -ATO40T PO; +ATOR-507 PO; -LISI40TA11 PO; +LISI40TA16 PO
[2025-01-20 02:35] VITALS: BP 152/102; RESP 18; TEMP 98.1; O2SAT 97
--- NOTE | 2025-01-20 02:42 | ECG ---
[facility] Test Date: 2025-01-20 Test Time: 02:38:22 Pat Name: WILLIE PEDERSEN Department: ED Room: Gender: F Production Analyst: : [id number] Requested By: HILL HOFFMAN Order Number: [id number] Reading MD: Suleman Foley Measurements Intervals [place] Rate: 65 P: 77 AL: 186 QRS: -71 QRSD: 148 T: 101 QT: 456 QTc: 475 Interpretive Statements Sinus rhythm Left bundle branch block Electronically Signed On 01-21-2025 17:02:09 PDT by Suleman Foley Please click the below link to view image of tracing.
[2025-01-20 03:20] VITALS: PULSE 65
--- NOTE | 2025-01-20 03:20 | ED.PDOC ---
HPI Comments 79 year old female presents to the ED with a chief compliant of palpitations onset yesterday. Patient states she has been experiencing palpitations since yesterday afternoon, worsened this morning. Patient also states her yesterday. BP was 181/72, repeat 152/102. PMHx CAD, HLD,IN, HTN, Thyroid disease. Denies nausea, vomiting, diarrhea, headache, dizziness, blurry vision, weakness, numbness/tingling. No other symptoms or modifying factors present at this time. Chief Complaint: Palpitations Time Seen by MD: 03:15 Primary Care Provider: BERNARDINO Reviewed Notes: Medications, Allergies Allergies: Coded Allergies: NO KNOWN ALLERGIES (Unverified , 11/18/19) Home Meds Reported Medications Zinc Sulfate (Zinc Sulfate) 220 Mg Cap, 150 MG PO DAILY 12/02/20 Fenofibrate (FENOFIBRATE) 145 Mg Tab, 1 TAB PO DAILY 12/02/20 Levothyroxine Sodium (Synthroid) 150 Mcg Tab, 1 TAB PO DAILY 12/02/20 Clopidogrel Bisulfate (CLOPIDOGREL) 75 Mg Tab, 75 MG PO DAILY for ATRIAL FIB. 11/18/19 Cholecalciferol (D3) 400 Unit Cap, 1 CAP PO QAM for SUPPLEMENT 04/10/19 Lisinopril (Lisinopril) 40 Mg Tab, 40 TAB PO DAILY for HYPERTENSION 03/19/16 Atorvastatin Calcium (Lipitor) 40 Mg Tab, 1 TAB PO QPM for HIGH CHOLESTEROL 03/19/16 Information Source: Patient Mode of Arrival: Ambulatory Severity: Moderate Timing: Days Duration: Since onset Prehospital treatment: None Onset: At Rest Cardiac Risk Factors: Smoker, Hyperlipidemia, HTN PE Risk Factors: None History of: IN Modifying Factors: Nothing Past Medical History PAST MEDICAL HISTORY: CAD, High Lipids, HTN, IN, Thyroid Surgical History: PTCA SACK CLEANER History: No Pertinent SACK CLEANER History Family History Family History: Reviewed,noncontributory to illness Social History Smoker: Cigarettes, Less Than 1 Pack/Day Alcohol: Denies ETOH Use Drugs: Denies Drug Use Lives In: Home Constitutional: denies: chills, diaphoresis, fatigue, fever, malaise, sweats, weakness, others EENTM: denies: blurred vision, double vision, ear bleeding, ear discharge, ear drainage, ear pain, ear ringing, eye pain, eye redness, hearing loss, mouth pain, mouth swelling, nasal discharge, nose bleeding, nose congestion, nose pain, photophobia, tearing, throat pain, throat swelling, voice changes, others Respiratory: denies: cough, hemoptysis, orthopnea, SOB at rest, shortness of breath, SOB with excertion, stridor, wheezing, others Cardiovascular: reports: palpitations; denies: chest pain, dizzy spells, diaphoresis, Dyspnea on exertion, edema, irregular heart beat, left arm pain, lightheadedness, PND, syncope, others Gastrointestinal: denies: abdomen distended, abdominal pain, blood streaked bowels, constipated, diarrhea, dysphagia, difficulty swallowing, hematemesis, melena, nausea, poor appetite, poor fluid intake, rectal bleeding, rectal pain, vomiting, others Genitourinary: denies: abnormal vagina bleeding, burning, dyspareunia, dysuria, flank pain, frequency, hematuria, incontinence, pain, , vagina discharge, urgency, others Neurological: denies: dizziness, fainting, headache, left sided numbness, left sided weakness, numbness, paresthesia, pre-existing deficit, right sided numbness, right sided weakness, seizure, speech problems, tingling, tremors, weakness, others Musculoskeletal: denies: back pain, gout, joint pain, joint swelling, muscle pain, muscle stiffness, neck pain, others Integumetry: denies: bruises, change in color, change in hair/nails, dryness, laceration, lesions, lumps, rash, wounds, others Allergic/Immunocompromised: denies: Difficulty Healing, Frequent Infections, Hives, Itching, others Hematologic/Lymphatic: denies: anemia, blood clots, easy bleeding, easy bruising, swollen glands, others Endocrine: denies: excessive hunger, excessive sweating, excessive thirst, excessive urination, flushing, intolerance to cold, intolerance to heat, une xplained weight gain, unexplained weight loss, others Psychiatric: denies: anxiety, bipolar disorder, depression, hopeless, panic disorder, schizophrenia, sleepless, suicidal, others All Other Systems: Reviewed and Negative Physical Exam General Appearance: No Apparent Distress, Normal HEENT: Normal ENT Inspection, Pharynx Normal, TMs Normal Neck: Full Range of Motion, Non-Tender, Normal, Normal Inspection Respiratory: Chest Non-Tender, Lungs Clear, No Accessory Muscle Use, No Respiratory Distress, Normal Breath Sounds Cardiovascular: No Edema, No JVD, No Murmur, No Gallop, Normal Peripheral Pul ses, Regular Rate/Rhythm Breast Exam: Deferred Gastrointestinal: No Organomegaly, Non Tender, No Pulsatile Mass, Normal Bowel Sounds, Soft Genitalia: Deferred Pelvic: Deferred Rectal: Deferred Extremities: No calf tenderness, Normal capillary refill, Normal inspection, Normal range of motion, Non-tender, No pedal edema Musculoskeletal : Apperance: Normal Neurologic: Alert, senior data architect II-XII nml as Tested, No Motor Deficits, Normal Affect, Normal Mood, No Sensory Deficits Cerebellar Function: Normal Reflexes: Normal Skin: Dry, Normal Color, Warm Lymphatic: No Adenopathy EKG EKG : Pulse Rate (adult): 65 Cardiac Rhythm: NSR Was a procedure done? Was a procedure done?: No CP Differential Dx Differential Diagnosis: MAT Differential Diagnosis: HTN Essential, HTN Accelerated Differential Diagnosis: Myocardial Infarction, Pericarditis X-Ray, Labs, Meds, VS Vital Signs Date Time Temp Pulse Resp B/P (MAP) Pulse Ox O2 Delivery O2 Flow Rate FiO2 01/20/25 03:20 65 01/20/25 02:38 65 01/20/25 02:35 98.1 70 18 152/102 97 98.1 01/20/25 02:35 97 Room Air* 0 21 Lab Test 01/20/25 03:11 Range/Units White Blood Count 5.9 4.4-10.8 10^3/uL Red Blood Count 4.31 4.0-5.20 10^6/uL Hemoglobin 13.0 12.2-16.2 g/dL Hematocrit 37.0 36.0-46.0 % Mean Corpuscular Volume 85.9 80.0-100.0 fL Mean Corpuscular Hemoglobin 30.2 28.0-32.0 pg Mean Corpuscular Hemoglobin Concent 35.1 32.0-36.0 g/dL Red Cell Distribution Width 14.3 11.8-14.3 % Platelet Count 239 140-450 10^3/uL Mean Platelet Volume 9.5 6.9-10.8 fL Neutrophils (%) (Auto) 41.2 37.0-80.0 % Lymphocytes (%) (Auto) 44.2 10.0-50.0 % Monocytes (%) (Auto) 11.6 0.0-12.0 % Eosinophils (%) (Auto) 2.1 0.0-7.0 % Basophils (%) (Auto) 0.9 0.0-2.0 % Neutrophils # (Auto) 2.4 1.6-8.6 10 ^3/uL Lymphocytes # (Auto) 2.6 0.4-5.4 10 ^3/uL Monocytes # (Auto) 0.7 0-1.3 10 ^3/uL Eosinophils # (Auto) 0.1 0-0.8 10 ^3/uL Basophils # (Auto) 0.1 0-0.2 10 ^3/uL Nucleated Red Blood Cells 0.1 % Sodium Level 141 136-145 mmol/L Potassium Level 3.8 3.5-5.1 mmol/L Chloride Level 110 H 98-107 mmol/L Carbon Dioxide Level 25 20-31 mmol/L Anion Gap 6 5-15 Blood Urea Nitrogen 7 L 9-23 mg/dL Creatinine 0.71 0.550-1.02 mg/dL Glomerular Filtration Rate Calc 86 >90 mL/min BUN/Creatinine Ratio 9.9 L 10.0-20.0 Serum Glucose 104 74-106 mg/dL Calcium Level 9.2 8.7-10.4 mg/dL Troponin I High Sensitivity 722 *H </=34 ng/L Time of 1ST Reevaluation: 03:45 Reevaluation 1ST: Unchanged Patient Education/Counseling: Diagnosis, Treatment, Prognosis Family Education/Counseling: No Family Present SEPSIS Sepsis Screen Date sepsis recognized/suspect: Jan 20, 2025 Time Sepsis recognized/suspect: 234 Recent Procedure: No On Antibiotic Therapy: No Respiratory Rate >20: No Heart Rate >90: No Temp<36 C (96.8 F) or >38.3 C: No SBP <90 or MAP <65 mmHG: No New Acute Mental Status Change: No Is the patient on CPAP, BIPAP,: No Physician Orders Troponin-I Hs (01/20/25 03:40) Troponin-I Hs (01/20/25 05:40) Electrocardigram (01/20/25 03:40) Electrocardigram (01/20/25 05:40) Chest Portable (01/20/25 02:43) Urinalysis (01/20/25 02:43) Vital Signs Date Time Temp Pulse Resp B/P (MAP) Pulse Ox O2 Delivery O2 Flow Rate FiO2 01/20/25 03:20 65 01/20/25 02:38 65 01/20/25 02:35 98.1 70 18 152/102 97 98.1 01/20/25 02:35 97 Room Air* 0 21 Laboratory Tests Test 01/20/25 03:11 White Blood Count 5.9 10^3/uL (4.4-10.8) Departure 1 Departure Time of Disposition: 04:31 (Patient presented with chest pain that was concerning for possible STEMI, ACS, PE, Pneumonia, Muscle Strain, COPD, Dissection. Data: 1. I ordered and reviewed the result of at least 3 labs including a CBC, BMP, and Troponin. 2. I independently interpreted the following tests: EKG which shows sinus arrhythmia and Chest X-ray which shows benign chest.Risk:This patient has a high risk of morbidity due to further diagnostic testing or treatment and may suffer from an acute cardiac or respiratory disorder. Workup reveals NSTEMI and patient should be admitted for further workup and possible expert consultation. ) Impression: Primary Impression: NSTEMI (non-ST elevated myocardial infarction) Additional Impressions: Acute chest pain Palpitations Disposition: ADMITTED INPATIENT Admit to: Tele Condition: Guarded Critical Care Note Critical Care Time?: Yes Critical care comment: NSTEMI and acute chest pain Authorized and Performed by: Hill Salinas MD Total critical care time: Approximately 119 minutes Due to a high probability of clinically significant, life threatening deterioration, the patient required my highest level of preparedness to i ntervene emergently and I personally spent this critical care time directly and personally managing the patient. This critical care time included obtaining a history; examining the patient; pulse oximetry; ordering and review of studies; arranging urgent treatment with development of a management plan; evaluation of patient's response to treatment; frequent reassessment; and, discussions with other providers. This critical care time was performed to assess and manage the high probability of imminent, life-threatening deterioration that could result in multi-organ failure. It was exclusive of separately billable procedures and treating other patients and teaching time. Please see my other sections and the rest of the note for further information on patient assessment and treatment. Stability Stability form required: No Heart Score Heart Score: Heart Score Response (Comments) Value History Moderate Suspicious 1 EKG Repolarization Disturb 1 Age >65 2 Risk Factors >3 or Hx ASHD 2 Troponin >3 x's Normal limit 2 Total 8 I personally scribed for HILL SALINAS MD ([email or web address]) on 01/20/25 at 03:20. Electronically submitted by Alix Steele ([email or web address]). HILL SALINAS MD Jan 20, 2025 03:20
--- NOTE | 2025-01-20 03:36 | DVH ---
CHEST RADIOGRAPH Indication: palpitations Technique: Single frontal view of the chest was obtained COMPARISON: CHEST TWO VIEWS ROUTINE on DOS: 12/02/20, CHEST XRAY 1 VIEW on DOS: 02/24/20 FINDINGS: Lines and Tubes: None Lungs: Clear Pleura: No effusion. No pneumothorax. Cardiomediastinal contours: Unremarkable Bones: Unremarkable IMPRESSION: 1. No acute disease.
[2025-01-20 03:43] LABS: Hematocrit 37.0 % (36.0-46.0); Hemoglobin 13.0 g/dL (12.2-16.2); Mean Corpuscular Hemoglobin 30.2 pg (28.0-32.0); Mean Corpuscular Volume 85.9 fL (80.0-100.0); Nucleated Red Blood Cells % 0.1 %
[2025-01-20 03:55] LABS: Anion Gap 6 (5-15); Carbon Dioxide 25 mmol/L (20-31); Potassium 3.8 mmol/L (3.5-5.1); Sodium 141 mmol/L (136-145)
[2025-01-20 03:56] LABS: Calcium 9.2 mg/dL (8.7-10.4)
[2025-01-20 04:00] LABS: Glucose 104 mg/dL (74-106)
[2025-01-20 04:01] LABS: BUN/Creatinine Ratio 9.9 (10.0-20.0)
[2025-01-20 04:12] LABS: Blood Urea Nitrogen 7 mg/dL (9-23); Chloride 110 mmol/L (98-107)
[2025-01-20 05:08] LABS: INR 1.04 (0.9-1.15); Partial Thromboplastin Time 25.9 SEC (24.5-34.5); Prothrombin Time 11.0 sec (9.3-11.8)
[2025-01-20] MEDS ORDERED: HEPARIN SODIUM (PORCINE) 5000 UNITS/ML 1ML VIAL IV ONE (06:00)
[2025-01-20] MEDS ORDERED: HEPARIN DRIP/D5W 100UNITS/ML 250 ML IV SCH (06:00)
== END 2025-01-20 04:03 | disposition left against medical advice (07) ==
LOC: ER 02:29
DX: I21.4 Non-ST elevation (NSTEMI) myocardial infarction (principal); R07.89 Other chest pain; R00.2 Palpitations; F17.210 Nicotine dependence, cigarettes, uncomplicated; E78.5 Hyperlipidemia, unspecified; I10 Essential (primary) hypertension; I25.10 Atherosclerotic heart disease of native coronary artery without angina pectoris; I25.2 Old myocardial infarction; Z79.899 Other long term (current) drug therapy; Z79.890 Hormone replacement therapy
CPT/HCPCS: 36415; 71045; 80048; 84484; 85025; 85610; 85730; 93005; 99291; 99292